=== PATIENT | female | born 1975 | race Caucasian/White ===

== ENCOUNTER 2017-03-17 12:14 | Emergency (ER) | payer BC ==
[2017-03-17] MEDS ORDERED: Nitroglycerin TAB 0.4 MG* 0.4 MG TAB SL ONE ×2 (12:35→12:53)
--- NOTE | 2017-03-17 12:35 | UC ---
Clara Parr Rebecca, scribed for Jennifer Chapman MD on 03/17/17 at 1225 . Cardiac HPI - HPI Summary HPI Summary: Pt is a 41 y/o F who presents to [facility] c/o CP. 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 Pain is moderate, ranked 6/10, located in the right anterior region without radiation and initially described as stabbing during movement. Pain then became constant and continued to be stabbing though it now is an aching, stating it "just hurts." Pt states feels "heavy." Took 2 ASA after onset of pain and Ibuprofen this morning for recurrent back pain. Sx aggravated and alleviated by nothing. Additionally c/o L -sided jaw numbness that radiates down the LUE. Notes back pain for the last week that has not changed since onset of chest pain. Denies SOB, nausea. SHx smoking, PMHx HTN, FHx CAD. Had a stress test done 4 years ago. No h/o CAD - History of Current Complaint Stated Complaint: CHEST PAIN Time Seen by Provider: 03/17/17 12:16 Hx Obtained From: Patient Hx Last Menstrual Period: 08/13/14 Onset/Duration: Lasting Hours, Still Present Timing: Constant Current Severity: Moderate Pain Intensity: 6 Chest Pain Location: Right Anterior Character: Sharp/Stabbing Aggravating: Nothing Alleviating: Nothing Associated Signs & Symptoms: Positive: Numbness - L-sided jaw numbness radiating into the LUE, Back Pain - 1 week. Negative: SOB, Nausea/Vomiting - Allergy/Home Medications Allergies/Adverse Reactions: Allergies Allergy/AdvReac Type Severity Reaction Status Date / Time No Known Allergies Allergy Verified 03/17/17 12:30 Home Medications: Home Medications Metoprolol Tartrate TAB* [Lopressor TAB*] 25 mg PO DAILY 03/17/17 [History Confirmed 03/17/17] PMH/Surg Hx/FS Hx/Imm Hx - Additional Past Medical History Additional PMH: Negative PMHx: GERD, [place] Previously Healthy: Yes Cardiovascular History: Hypertension Respiratory History: Asthma - Surgical History Surgical History: Yes Surgery Procedure, Year, and Place: briseida ~2010. tubal 2005 - Family History Known Family History: Positive: Cardiac Disease - Social History Occupation: Employed Full-time Lives: With Family Alcohol Use: Rare Substance Use Type: None Smoking Status (MU): Current Every Day Smoker Amount Used/How Often: 1 pack per 2 days Review of Systems Constitutional: Negative Skin: Negative Eyes: Negative ENT: Negative Respiratory: Negative Cardiovascular: Chest Pain - Right anterior Gastrointestinal: Negative Genitourinary: Negative Motor: Negative Neurovascular: Negative Musculoskeletal: Other: - Back pain for 1 week Neurological: Numbness - L-sided jaw numbness with radiation down the LUE Psychological: Negative All Other Systems Reviewed And Are Negative: Yes - Comments Additional Review of Systems Comments: NEGATIVE: SOB and nausea Physical Exam Triage Information Reviewed: Yes Appearance: Well-Appearing, Well-Nourished, Pain Distress - tearful Vital Signs: Initial Vital Signs Temp 98.7 F 03/17/17 12:26 Pulse 105 03/17/17 12:26 Resp 20 03/17/17 12:26 BP 159/90 03/17/17 12:26 Pulse Ox 100 03/17/17 12:26 Vital Signs Reviewed: Yes Eye Exam: Normal Eyes: Positive: Conjunctiva Clear ENT: Positive: Hearing grossly normal, Pharynx normal Neck exam: Normal Neck: Positive: Supple, Nontender Respiratory: Positive: Chest non-tender, Lungs clear, Normal breath sounds, No respiratory distress, No accessory muscle use, Other: - No bruits b/l Cardiovascular Exam: Normal Cardiovascular: Positive: RRR, No Murmur, Pulses Normal, Other: - 2+ radial 2+ ulnar CBT < 2 sec Abdominal Exam: Normal Abdomen Description: Positive: Nontender, No Organomegaly, Soft Bowel Sounds: Positive: Present Musculoskeletal Exam: Normal Musculoskeletal: Positive: Strength Intact Neurological Exam: Normal Neurological: Positive: Alert Psychological Exam: Normal Skin: Positive: Other - Pt with scabbed wounds to arms Diagnostics - EKG Cardiac Rate: NL - 71 bpm Cardiac Rhythm: Sinus: Normal ST Segment: Non-Specific - Inverted T waves in III, minimal ST elevation in aVL - Assessment/Plan Course Of Treatment: Patient medications reviewed this visit. Elevated BP noted and advised to follow up with PCP. pt is a 41 yo female with PMH sig for htn, tobacco use presents with substernal right sided chest pain and left jaw pain x 1 hour. 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 No h/o cardiac dx. Pt EKG with inverted T wave nad slight elevated avL. Will place IV. nitro. transfer to ED by EMS. Pt and spoused and comfortable and in agreement with plan - Clinical Impression Provider Diagnoses: Chest pain Discharge - Discharge Plan Condition: Stable Disposition: TRANS HIGHER LVL OF CARE FAC The documentation as recorded by the Clara mcghee Rebecca accurately reflects the service I personally performed and the decisions made by , Jennifer Chapman MD.
[2017-03-17 12:52] VITALS: BP 122/70
[2017-03-17] MEDS ORDERED: Nitroglycerin TAB 0.4 MG* 0.4 MG TAB ONE (12:53)
== END 2017-03-17 13:00 | disposition short-term general hospital (02) ==
LOC: UCEAST 12:14
DX: R07.89 Other chest pain (principal); R20.0 Anesthesia of skin; M54.9 Dorsalgia, unspecified; I10 Essential (primary) hypertension; J45.909 Unspecified asthma, uncomplicated; Z90.49 Acquired absence of other specified parts of digestive tract
CPT/HCPCS: 93005; 99213; A9270-GY; G0463

== ENCOUNTER 2017-03-17 13:33 | Observation (INO) | payer BC ==
[2017-03-17] MEDS ORDERED: Aspirin Low Dose CHEW TAB* 81 MG PO ONE (13:37)
[2017-03-17 13:55] LABS: Hematocrit 38 % (35-47); Hemoglobin 12.6 g/dl (12.0-16.0); Mean Corpuscular HGB Conc 33 g/dl (31-36); Mean Corpuscular Hemoglobin 27 pg (27-31); Mean Corpuscular Volume 82 fL (80-97); Mean Platelet Volume 8 um3 (7.4-10.4); Red Blood Count 4.62 10^6/ul (4.0-5.4); Red Cell Distribution Width 14 % (10.5-15); White Blood Count 8.6 10^3/ul (3.5-10.8)
[2017-03-17 13:56] LABS: Comments Flag Yes
[2017-03-17 14:08] LABS: ALT 14 U/L (7-52); Albumin 3.4 g/dL (3.2-5.2); Alkaline Phosphatase 57 U/L (34-104); BUN/Creatinine Ratio 16.7 (8-20); Blood Urea Nitrogen 9 mg/dL (6-24); CO2 Carbon Dioxide 25 mmol/L (22-32); Calcium 8.6 mg/dL (8.6-10.3); Chloride 106 mmol/L (101-111); Creatine Kinase 65 U/L (10-223); EGFR African American 159.2 (>60); EGFR Non-African American 123.8 (>60); Globulin 3.6 g/dL (2-4); Glucose 91 mg/dL (70-100); Sodium 136 mmol/L (133-145)
[2017-03-17 14:10] LABS: Troponin I 0.01 ng/mL (<0.04)
[2017-03-17 14:17] LABS: TSH (Thyroid Stimulating Horm) 2.23 mcIU/mL (0.34-5.60)
[2017-03-17 14:26] LABS: Anion Gap 5 mmol/L (2-11)
--- NOTE | 2017-03-17 14:36 | RAD ---
INDICATION: Chest pain COMPARISON: None TECHNIQUE: PA and lateral dual-energy views were obtained. FINDINGS: Bones/Soft Tissues: There are no acute bony findings. Cardiomediastinal: The cardiomediastinal silhouette is normal. Lungs: There are no infiltrates. Pleura: There are no pleural effusions. Other: None IMPRESSION: NO ACTIVE DISEASE.
[2017-03-17 15:18] LABS: Magnesium 1.9 mg/dL (1.9-2.7)
[2017-03-17] MEDS ORDERED: Albuterol HFA INHALER* 8 gm MDI INH PRN (15:57)
[2017-03-17] MEDS ORDERED: Nitroglycerin TAB 0.4 MG* 0.4 MG TAB SL ONE (16:14)
[2017-03-17] MEDS ORDERED: Nitroglycerin TAB 0.4 MG* 0.4 MG TAB SL PRN (16:15)
--- NOTE | 2017-03-17 17:23 | HP ---
HISTORY AND PHYSICAL: DATE OF ADMISSION: 03/17/17 ADMITTING PROVIDER: Rick Laura MD. PRIMARY CARE PHYSICIAN: Dr. Gaona of [place], [place]. CHIEF COMPLAINT: Stabbing chest pain. HISTORY OF PRESENT ILLNESS: Ms. Rocha is a 41-year-old female with a past medical history of asthma, hypertension, morbid obesity, current smoker, approximately two- thirds of a pack a day for most of her adult life, who presents with sharp stabbing substernal pain, 7/10 to 8/10 in intensity, occurring at 11 a.m. on the day of admission while she was using her computer at work. She presented to [facility] and received 2 aspirins and an EKG, which showed T-wave inversion in lead 3. No other ST changes. The patient was transported via EMS, given additional 2 aspirins, she had gotten 2 aspirin at [facility], for a total of 324 mg, and present to our emergency room. Initial troponin here was 0.01. The patient attested that symptoms were accompanied by sensation of numbness on the left side of her face and neck. She was given sublingual nitro by EMS and stabbing pain and numbness resolved. She denies any history of similar symptoms. She does have frequent asthma attacks using her rescue albuterol inhaler every day. She gets very short of breath with any exertion. 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 Last admission for pneumonia 3 years ago, at which point she was found to be hypertensive and started on metoprolol 25 daily. She denies drug use, specifically cocaine, and is not a drinker of alcohol. Vital signs on presentation to our ED include blood pressure 138/89, temperature 98.4 degrees Fahrenheit, heart rate 64, respiratory rate 13, satting high 90s on room air. Initial troponin was 0.01, BNP 71. She will be admitted for ACS rule out on observation status, on telemetry floor. Her risk factors are hypertension, morbid obesity, and current smoker. PAST MEDICAL HISTORY: Hypertension, asthma, morbid obesity, current smoker. MEDICATIONS: Prior medications include: 1. Albuterol rescue inhaler, used almost daily. 2. Metoprolol 25 mg daily. ALLERGIES: No known drug allergies. SOCIAL HISTORY: Patient has 4 kids. Current smoker. Nondrinker, no drug use. is surrogate medical decision maker, Manish Rocha. FAMILY MEDICAL HISTORY: Mother with hypertension. REVIEW OF SYSTEMS: The patient denies 14-point review of systems except as outlined in H and P, specifically denies fevers, chills, nausea, vomiting, diarrhea, constipation, sick contacts, palpitations, stomach pain, headaches, vision changes, numbness, tingling, loss of motor strength, loss of sensation, sore throat, rashes or insect bites. PHYSICAL EXAMINATION GENERAL APPEARANCE: In no acute distress, resting comfortably on the [facility]. VITAL SIGNS: As noted in the HPI. HEENT: Atraumatic, normocephalic. No scleral icterus. Mucous membrane is moist. No oropharynx lesions. NECK: Supple. No cervical lymphadenopathy. PULMONARY: Lungs clear to auscultation bilaterally, with no wheezing, rales, or rhonchi. CARDIOVASCULAR: Regular rate and rhythm. No murmurs, rubs or gallops. Normal S1 and S2. ABDOMEN: Soft, distended/morbidly obese. Nontender. No rebound or guarding. EXTREMITIES: Warm, well perfused. No peripheral edema. Pulses intact. MUSCULOSKELETAL: No tenderness to palpation of sternum or shoulders. NEUROLOGIC: Cranial nerves II through XII intact. Moving all extremities. Strength 5/5 in bilateral arms and legs. SKIN: The patient with tattoos on back. No rashes. No lesions. ASSESSMENT/ PLAN: 1. The patient is a 41-year-old female with cardiac risk factors including current smoker, morbid obesity, and hypertension. She will be admitted for ACS rule out. Troponins will be returned x3, kept on tele monitor. She is already on 324 mg of aspirin. We will continue lovenox sq for DVT prophylaxis, but will not start therapeutic anticoagulation given atypical symptoms and low suspicion for actual current ischemia. 2. For asthma, the patient will be continued on albuterol nebs q.4 hours p.r.n. 3. For hypertension, metoprolol 25 mg daily will be continued. 4. DVT prophylaxis: lovenox 40mg daily. 5. Diet: Cardiac diet. 6. Code status: The patient is a full code and , Manish Rocha, is her medical surrogate. [id number]/[facility] #: [id number] [facility]
[2017-03-17] MEDS ORDERED: Enoxaparin(*) 40 MG/0.4 ML SYR SUBCUT SCH (18:00)
--- NOTE | 2017-03-17 18:50 | ED ---
Nick Parr Angela, scribed for Ernst Saunders MD on 03/17/17 at 1344 . HPI Chest Pain - HPI Summary HPI Summary: This pt is a 41 y/o female presenting to [facility] via EMS from [facility] c/o sudden onset of chest pain since 1100 today. Pt reports she was sitting at her desk when she began to experience a stabbing sharp pain in the middle of her chest. Pt is unable to describe how she felt at the moment or if she was SOB or dizzy. Initially her chest pain was rated 8 out of 10 in severity. She states she got up and took 2 aspirin. Soon after she began to feel tingling on the left side of her face. Afterwards she called her and went to convenient care. Pt was told she had an abnormal EKG and was transferred to the ED. En route, EMS administered 2 NGC and her blood pressure dropped. Pt currently rates her chest pain 1 out of 10 in severity, and endorses left sided facial numbness. Pt denies SOB. Pt is a current smoker, 1/2 PPD. PMHx: HTN, asthma. Pt denies PMHx of cardiac disease. - History of Current Complaint Hx Obtained From: Patient Hx Last Menstrual Period: 08/13/14 Onset/Duration: Started Hours Ago Timing: Lasting Hours Pain Intensity: 1 Pain Scale Used: 0-10 Numeric Chest Pain Location: Mid Sternal Chest Pain Radiates: No Aggravating Factor(s): Nothing Alleviating Factor(s): NTG 123 Associated Signs and Symptoms: Positive: Chest Pain, Numbness - left sided face numbness, Tingling - left sided face. Negative: Shortness of Breath, Fever, Chills, Nausea, Abdominal Pain, Vomiting, Wheezing - Allergy/Home Medications Allergies/Adverse Reactions: Allergies Allergy/AdvReac Type Severity Reaction Status Date / Time No Known Allergies Allergy Verified 03/17/17 12:30 PMH/Surg Hx/FS Hx/Imm Hx Endocrine/Hematology History: Denies: Hx Diabetes Cardiovascular History: Reports: Hx Hypertension Denies: Hx Coronary Artery Disease Respiratory History: Reports: Hx Asthma - Surgical History Surgery Procedure, Year, and Place: briseida ~2010. tubal 2005 - Family History Known Family History: Positive: Cardiac Disease, Hypertension - Social History Alcohol Use: Rare Substance Use Type: Reports: None Smoking Status (MU): Current Every Day Smoker Type: Cigarettes Amount Used/How Often: 1 pack per 2 days Review of Systems Negative: Fever, Chills ENT: Negative Positive: Chest Pain Negative: Shortness Of Breath Negative: Abdominal Pain, Vomiting, Diarrhea, Nausea Musculoskeletal: Negative Positive: Paresthesia - left sided face, Numbness - left sided face All Other Systems Reviewed And Are Negative: Yes Physical Exam - Summary Physical Exam Summary: VITAL SIGNS: Reviewed. GENERAL: Patient is a well-developed and obese male who is lying comfortable in the stretcher. Patient is not in any acute respiratory distress. HEAD AND FACE: No signs of trauma. No ecchymosis, hematomas or skull depressions. No sinus tenderness. EYES: PERRLA, EOMI x 2, No injected conjunctiva, no nystagmus. EARS: Hearing grossly intact. Ear canals and tympanic membranes are within normal limits. MOUTH: Oropharynx within normal limits. NECK: Supple, trachea is midline, no adenopathy, no JVD, no carotid bruit, no c- spine tenderness, neck with full ROM. CHEST: Symmetric, no tenderness at palpation LUNGS: Clear to auscultation bilaterally. No wheezing or crackles. CVS: Regular rate and rhythm, S1 and S2 present, no murmurs or gallops appreciated. ABDOMEN: Soft, non-tender. No signs of distention. No rebound no guarding, and no masses palpated. Bowel sounds are normal. EXTREMITIES: FROM in all major joints, no edema, no cyanosis or clubbing. NEURO: Alert and oriented x 3. No acute neurological deficits. Speech is normal and follows commands. SKIN: Dry and warm Triage Information Reviewed: Yes Vital Signs On Initial Exam: Initial Vitals Temp Pulse Resp BP Pulse Ox 98.4 F 64 13 138/89 97 03/17/17 13:34 03/17/17 13:34 03/17/17 13:34 03/17/17 13:34 03/17/17 13:34 Vital Signs Reviewed: Yes Diagnostics - Vital Signs Vital Signs Temp Pulse Resp BP Pulse Ox 03/17/17 15:00 69 21 97 03/17/17 14:03 19 03/17/17 13:44 68 15 97 03/17/17 13:42 125/81 03/17/17 13:34 98.4 F 64 13 138/89 97 - Laboratory Lab Results: Lab Results 03/17/17 03/17/17 03/17/17 Range/Units 12:40 12:40 12:40 WBC 8.6 (3.5-10.8) 10^3/ul RBC 4.62 (4.0-5.4) 10^6/ul Hgb 12.6 (12.0-16.0) g/dl Hct 38 (35-47) % MCV 82 (80-97) fL MCH 27 (27-31) pg MCHC 33 (31-36) g/dl RDW 14 (10.5-15) % Plt Count 247 (150-450) 10^3/ul MPV 8 (7.4-10.4) um3 Neut % (Auto) 75.5 (38-83) % Lymph % (Auto) 16.6 L (25-47) % [place] % (Auto) 3.8 (1-9) % Eos % (Auto) 3.6 (0-6) % Baso % (Auto) 0.5 (0-2) % Absolute Neuts (auto) 6.5 (1.5-7.7) 10^3/ul Absolute Lymphs (auto) 1.4 (1.0-4.8) 10^3/ul Absolute Monos (auto) 0.3 (0-0.8) 10^3/ul Absolute Eos (auto) 0.3 (0-0.6) 10^3/ul Absolute Basos (auto) 0 (0-0.2) 10^3/ul Absolute Nucleated RBC 0 10^3/ul Nucleated RBC % 0 D-Dimer, Quantitative (Less Than 230) ng/mL Sodium 136 (133-145) mmol/L Potassium TNP Chloride 106 (101-111) mmol/L Carbon Dioxide 25 (22-32) mmol/L Anion Gap 5 (2-11) mmol/L BUN 9 (6-24) mg/dL Creatinine 0.54 (0.51-0.95) mg/dL Est GFR ( Amer) 159.2 (>60) Est GFR (Non-Af Amer) 123.8 (>60) BUN/Creatinine Ratio 16.7 (8-20) Glucose 91 (70-100) mg/dL Lactic Acid (0.5-2.0) mmol/L Calcium 8.6 (8.6-10.3) mg/dL Magnesium TNP Total Bilirubin 0.40 (0.2-1.0) mg/dL AST TNP ALT 14 (7-52) U/L Alkaline Phosphatase 57 (34-104) U/L Total Creatine Kinase 65 (10-223) U/L CK-MB (CK-2) 3.4 (0.6-6.3) ng/mL Troponin I 0.01 (<0.04) ng/mL B-Natriuretic Peptide 71 ( - 100) pg/mL Total Protein 7.0 (6.4-8.9) g/dL Albumin 3.4 (3.2-5.2) g/dL Globulin 3.6 (2-4) g/dL Albumin/Globulin Ratio 0.9 L (1-3) TSH 2.23 (0.34-5.60) mcIU/mL 03/17/17 03/17/17 03/17/17 Range/Units 12:40 14:20 14:54 WBC (3.5-10.8) 10^3/ul RBC (4.0-5.4) 10^6/ul Hgb (12.0-16.0) g/dl Hct (35-47) % MCV (80-97) fL MCH (27-31) pg MCHC (31-36) g/dl RDW (10.5-15) % Plt Count (150-450) 10^3/ul MPV (7.4-10.4) um3 Neut % (Auto) (38-83) % Lymph % (Auto) (25-47) % [place] % (Auto) (1-9) % Eos % (Auto) (0-6) % Baso % (Auto) (0-2) % Absolute Neuts (auto) (1.5-7.7) 10^3/ul Absolute Lymphs (auto) (1.0-4.8) 10^3/ul Absolute Monos (auto) (0-0.8) 10^3/ul Absolute Eos (auto) (0-0.6) 10^3/ul Absolute Basos (auto) (0-0.2) 10^3/ul Absolute Nucleated RBC 10^3/ul Nucleated RBC % D-Dimer, Quantitative 220 (Less Than 230) ng/mL Sodium (133-145) mmol/L Potassium 4.1 Chloride (101-111) mmol/L Carbon Dioxide (22-32) mmol/L Anion Gap (2-11) mmol/L BUN (6-24) mg/dL Creatinine (0.51-0.95) mg/dL Est GFR ( Amer) (>60) Est GFR (Non-Af Amer) (>60) BUN/Creatinine Ratio (8-20) Glucose (70-100) mg/dL Lactic Acid 0.6 (0.5-2.0) mmol/L Calcium (8.6-10.3) mg/dL Magnesium 1.9 Total Bilirubin (0.2-1.0) mg/dL AST 13 ALT (7-52) U/L Alkaline Phosphatase (34-104) U/L Total Creatine Kinase (10-223) U/L CK-MB (CK-2) (0.6-6.3) ng/mL Troponin I (<0.04) ng/mL B-Natriuretic Peptide ( - 100) pg/mL Total Protein (6.4-8.9) g/dL Albumin (3.2-5.2) g/dL Globulin (2-4) g/dL Albumin/Globulin Ratio (1-3) TSH (0.34-5.60) mcIU/mL Result Diagrams: 03/17/17 12:40 03/17/17 14:54 Lab Statement: Any lab studies that have been ordered have been reviewed, and results considered in the medical decision making process. - Radiology Chest XR Xray Interpretation: No Acute Changes - IMPRESSION: No active disease. ED physician has reviewed this radiology report and agrees. Radiology Interpretation Completed By: Radiologist Chest Pain Course/Dx - Course Assessment/Plan: This pt is a 41 y/o female [place] [facility] [place] [facility] c/o sudden onset of chest pain since 1100 today. Pt reports she was sitting at her desk when she began to experience a stabbing sharp pain in the middle of her chest. Pt is unable to describe how she felt at the moment or if she was SOB or dizzy. Initially her chest pain was rated 8 out of 10 in severity. She states she got up and took 2 aspirin. Soon after she began to feel tingling on the left side of her face. Afterwards she called her and went to convenient care. Pt was told she had an abnormal EKG and was transferred to the ED. En route, EMS administered 2 NGC and her blood pressure dropped. Pt currently rates her chest pain 1 out of 10 in severity, and endorses left sided facial numbness. Pt denies SOB. Pt is a current smoker, 1/ 2 PPD. PMHx: HTN, asthma. Pt denies PMHx of cardiac disease. Teste results without any significant abnormalities. EKG shows no ST elevation. Chest XR shows no acute pathology. However, the pt has a PMHx of hypertension and morbid obesity. The chest pain was resolved with nitroglycerin. I discussed the case with Dr. Mendez who has accepted the pt for admission. Pt is hemodynamically stable, alert and oriented x3. - Chest Pain Differential Diagnosis/HQI/PQRI: Acute NH, ACS, Angina, Aortic Aneurysm, CHF, Chest Wall, GI Disease, Lower Respiratory Infection - Diagnoses Provider Diagnoses: Chest pain, rule out acute coronary syndrome - Provider Notifications Discussed Care Of Patient With: Akshat Mendez Time Discussed With Above Provider: 15:11 Instructed by Provider To: Other - I discussed the pt's case with Dr. Mendez. He has agreed to admit the pt. Discharge - Discharge Plan Condition: Stable Disposition: ADMITTED TO [facility] The documentation as recorded by the Nick mcghee Angela accurately reflects the service I personally performed and the decisions made by me, Ernst Saunders MD.
[2017-03-18 05:28] LABS: HDL Cholesterol 26.7 mg/dL
[2017-03-18 07:55] VITALS: BP 115/66
[2017-03-18] MEDS ORDERED: Metoprolol Tartrate TAB* 25 MG PO SCH (09:00)
--- NOTE | 2017-03-18 15:29 | DS ---
DISCHARGE SUMMARY: DATE OF ADMISSION: 03/17/17 DATE OF DISCHARGE: 03/18/17 ADMITTING PROVIDER: Rick Laura MD. ATTENDING PROVIDER: Rick Laura MD. PRIMARY CARE PHYSICIAN: Dr. Gaona. CHIEF COMPLAINT: Stabbing substernal chest pain. PRINCIPAL DIAGNOSIS: Acute coronary syndrome ruled out. HISTORY OF PRESENT ILLNESS AND HOSPITAL COURSE: Ms. 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 [facility], received a total of 324 mg of aspirin and sublingual nitro with EMS on transfer to [facility] Emergency Room. Her initial EKG showed T-wave inversion in lead 3, and no other ST changes. She was monitored overnight in the observation unit. All troponins were negative at 0.01 x3. Her chest pain never returned. No evidence of arrhythmia on telemetry. Her LDL was 93 and her HDL was 26. She will be discharged home and recommended to follow up with Dr. Gaona and establishing care with a library clerical assistant for consideration for outpatient stress test given her risk factors of morbid obesity, current smoker, and hypertension. DISCHARGE MEDICATIONS: 1. Albuterol rescue inhaler daily. 2. Metoprolol 25 mg daily. DISCHARGE DIET: Cardiac, heart healthy. TIME SPENT ON DISCHARGE: 35 minutes. [id number]/[facility] #: [id number] MTDD
== END 2017-03-18 12:00 | disposition home or self-care (01) ==
LOC: ED 13:33 → MEDTELE 15:55
PROVIDERS: ADMIT Internal Medicine; ATTEND Internal Medicine
DX: R07.9 Chest pain, unspecified (principal); I10 Essential (primary) hypertension; E66.01 Morbid (severe) obesity due to excess calories; J45.909 Unspecified asthma, uncomplicated; F17.210 Nicotine dependence, cigarettes, uncomplicated; R06.02 Shortness of breath
CPT/HCPCS: 36415; 71020; 80053; 80061; 82550; 82553; 83036; 83605; 83735; 83880; 84443; 84484; 85025; 85379; 87040; 96372; 99282; 99406; A9270-GY; G0378; J1650